=== PATIENT | female | born 1945 | race Caucasian/White ===

== ENCOUNTER 2019-09-28 22:22 | Emergency (ER) | payer MEDICARE ==
--- NOTE | 2019-09-28 22:56 | EDM.PDOC ---
<Camille Mahoney - Last Filed: 09/28/19 23:23> ED HPI GENERAL MEDICAL PROBLEM - General Chief Complaint: General Stated Complaint: VOMITING,UNABLE TO WALK Time Seen by Provider: 09/28/19 22:23 Source of Information: Reports: Patient, Family History Limitations: Reports: Other (ETOH on board) - History of Present Illness INITIAL COMMENTS - FREE TEXT/NARRATIVE: Aliyah presents today per private vehicle with her . Her reports she was [facility] and just went back in her chair and would not respond to him. While in the wheelchair she is easily aroused, verbal with equal and reactive pupils. Speech slightly slurred. Aliyah denies pain, fever, chills, nausea, vomiting or other concerns. - Related Data Allergies Allergy/AdvReac Type Severity Reaction Status Date / Time No Known Allergies Allergy Verified 09/28/19 22:35 Home Meds: Home Meds Aspirin [Halfprin] 81 mg PO DAILY 09/28/19 [History] Sour Mann Extract [Tart Mann Extract] 1,000 mg PO DAILY 09/28/19 [History] Past Medical History Cardiovascular History: Reports: Hypertension [employer] History: Reports: - Infectious Disease History Infectious Disease History: Reports: Chicken Pox, Measles, Mumps - Past Surgical History Endocrine Surgical History: Reports: Thyroid Biopsy, Other (See Below) Other Endocrine Surgeries/Procedures: patient had a radioactive treatment on her thyroid Other Musculoskeletal Surgeries/Procedures:: back surgery Social & Family History - Tobacco Use Smoking Status *Q: Never Smoker - Caffeine Use Caffeine Use: Reports: Coffee Caffeine Use Comment: daily cup of coffee - Alcohol Use Days Per Week of Alcohol Use: 2 Number of Drinks Per Day: 3 Total Drinks Per Week: 6 Date of Last Drink: 09/28/19 - Recreational Drug Use Recreational Drug Use: No ED ROS GENERAL - Review of Systems Review Of Systems: See Below Constitutional: Reports: Weakness HEENT: Reports: No Symptoms Respiratory: Reports: No Symptoms Cardiovascular: Reports: No Symptoms Endocrine: Reports: No Symptoms GI/Abdominal: Reports: No Symptoms : Reports: No Symptoms Musculoskeletal: Reports: No Symptoms Skin: Reports: No Symptoms Neurological: Reports: Other (not responding per her husbamd) Psychiatric: Reports: No Symptoms Hematologic/Lymphatic: Reports: No Symptoms Immunologic: Reports: No Symptoms ED EXAM, GENERAL - Physical Exam Exam: See Below Exam Limited By: No Limitations General Appearance: No Apparent Distress, Lethargic, Other (easily aroused. Patient reports she drank vodka and cranberry today. ) Eye Exam: Bilateral Eye: Normal Inspection, PERRL Ears: Normal External Exam, Normal Canal, Hearing Grossly Normal, Normal TMs Ear Exam: Bilateral Ear: Auricle Normal, Canal Normal, TM normal Nose: Normal Inspection, Normal Mucosa, No Blood Throat/Mouth: Normal Inspection, Normal Lips, Normal Teeth, Normal Gums, Normal Voice, No Airway Compromise Head: Atraumatic, Normocephalic Neck: Normal Inspection, Supple, Non-Tender, Full Range of Motion. No: Lymphadenopathy (R), Lymphadenopathy (L) Respiratory/Chest: No Respiratory Distress, Lungs Clear, Normal Breath Sounds, No Accessory Muscle Use, Chest Non-Tender Cardiovascular: Normal Peripheral Pulses, Regular Rate, Rhythm, No Edema, No Gallop, No Murmur, No Rub Peripheral Pulses: 2+: Radial (L), Radial (R) GI/Abdominal: Normal Bowel Sounds, Soft, Non-Tender, No Organomegaly, No Distention, No Mass. No: Guarding, Rigid, Rebound, Tender Back Exam: Normal Inspection, Full Range of Motion. No: CVA Tenderness (R), CVA Tenderness (L) Extremities: Normal Inspection, Non-Tender, No Pedal Edema, Normal Capillary Refill, Other (equal strength) Neurological: Inattentive, Slow to Respond, Other (No facial droop, equal strength to all extermities, patient follows commands. ) Psychiatric: Flat Affect Skin Exam: Warm, Dry, Intact, Normal Color, No Rash Lymphatic: No Adenopathy EKG INTERPRETATION EKG Date: 09/28/19 Time: 22:26 Rhythm: NSR [place]: Normal P-Wave: Present QRS: Normal ST-T: Normal QT: Normal Course - Vital Signs Last Recorded V/S: Last Vital Signs Temp 95.2 F L 09/28/19 23:00 Pulse 72 09/29/19 00:14 Resp 20 09/28/19 22:28 BP 143/66 H 09/29/19 00:14 Pulse Ox 97 09/28/19 22:28 - Orders/Labs/Meds Orders: Active Orders 24 hr Category Date Time Status EKG Documentation Completion [RC] ASDIRECTED Care 09/28/19 22:34 Active UA W/MICROSCOPIC [URIN] Stat Lab 09/28/19 22:33 Ordered Sodium Chloride 0.9% [Normal Saline] 1,000 ml Med 09/28/19 23:30 Active IV ASDIRECTED EKG 12 Lead [EK] Routine Ther 09/28/19 22:33 Ordered Medication Orders Sodium Chloride (Normal Saline) 1,000 mls @ 500 mls/hr IV ASDIRECTED ARELIS Last Admin: 09/28/19 23:44 Dose: 500 mls/hr Labs: Laboratory Tests 09/28/19 09/28/19 09/28/19 Range/Units 22:44 22:44 22:44 WBC 7.7 (4.5-11.0) K/uL RBC 4.55 (3.30-5.50) M/uL Hgb 13.3 (12.0-15.0) g/dL Hct 41.5 (36.0-48.0) % MCV 91 (80-98) fL MCH 29 (27-31) pg MCHC 32 (32-36) % Plt Count 281 (150-400) K/uL Neut % (Auto) 46 (36-66) % Lymph % (Auto) 43 (24-44) % Lewis % (Auto) 8 H (2-6) % Eos % (Auto) 3 (2-4) % Baso % (Auto) 1 (0-1) % Sodium 141 (140-148) mmol/L Potassium 3.3 L (3.6-5.2) mmol/L Chloride 102 (100-108) mmol/L Carbon Dioxide 25 (21-32) mmol/L Anion Gap 17.3 H (5.0-14.0) mmol/L BUN 15 (7-18) mg/dL Creatinine 0.8 (0.6-1.0) mg/dL Est Cr Clr Drug Dosing 53.83 mL/min Estimated GFR (MDRD) > 60 (>60) Glucose 130 H (74-106) mg/dL Calcium 8.6 (8.5-10.1) mg/dL Ethyl Alcohol 28 mg/dL Patient lab work reviewed, discussed with Dr. Officer and patient. Patient reports she just does not feel well, she denies nausea, vomiting, headache, change in vision or any other concerns then "just don't feel good" We will give Aliyah 1000ml IV normal saline. Meds: Medications Generic Name Dose Route Start Last Admin Trade Name Fco PRN Reason Stop Dose Admin Sodium Chloride 1,000 mls @ 500 mls/hr 09/28/19 23:30 09/28/19 23:44 Normal Saline IV 500 mls/hr ASDIRECTED ARELIS Administration Departure - Departure Disposition: Home, Self-Care 01 Clinical Impression: Alcohol intoxication Qualifiers: Complication of substance-induced condition: uncomplicated Qualified Code(s): F10.920 - Alcohol use, unspecified with intoxication, uncomplicated - Discharge Information Instructions: Alcohol Intoxication Referrals: PCP,None [Primary Care Provider] - Forms: ED Department Discharge Additional Instructions: Recommend refrain from alcohol, please follow-up with your primary care provider upon return home call or return to the emergency department with worsening of symptoms Sepsis Event Note - Evaluation Sepsis Screening Result: No Definite Risk - Focused Exam Vital Signs: Vital Signs Temp Pulse Resp BP Pulse Ox 09/29/19 00:14 72 143/66 H 09/28/19 23:44 78 159/77 H 09/28/19 23:14 76 143/65 H 09/28/19 23:00 95.2 F L 09/28/19 22:43 72 147/68 H 09/28/19 22:38 70 140/60 09/28/19 22:33 71 147/67 H 09/28/19 22:28 72 20 151/67 H 97 09/28/19 22:23 145/59 H Date Exam was Performed: 09/28/19 Time Exam was Performed: 23:23 <OfficerIgor - Last Filed: 09/29/19 00:50> Departure - Departure Time of Disposition: 00:50 Condition: Fair Sepsis Event Note - Focused Exam Date Exam was Performed: 09/29/19 Time Exam was Performed: 00:48 - Assessment/Plan Plan: Took over care from Camille Naiud at midnight Assessment Acuity = acute Site and laterality = alcohol intoxication with syncopal event Etiology = EtOH Manifestations = none Location of injury = Home Lab values = CBC unremarkable potassium low at 3.3 consistent hypokalemia alcohol was 280 Plan She had good improvement with 1 L fluids was able to ambulate around the emergency department difficulty states she only had 2-3 drinks of alcohol. Plan is discharged home she is camping this weekend follow-up with primary care upon return home if not better This note was dictated using [employer] voice recognition software please call with any questions on syntax or grammar.
[2019-09-28] MEDS ORDERED: Sodium Chloride 0.9% 1,000 ML IV SCH (23:30)
== END 2019-09-29 01:04 | disposition home or self-care (01) ==
LOC: JP.ED 22:22
DX: F10.120 Alcohol abuse with intoxication, uncomplicated (principal); I10 Essential (primary) hypertension; Z79.82 Long term (current) use of aspirin; Y90.1 Blood alcohol level of 20-39 mg/100 ml
CPT/HCPCS: 36415; 80048; 80307; 85025; 93005; 99283; 99284; J7030